=== PATIENT | female | born 2000 | race African-American/Black ===

== ENCOUNTER 2024-04-10 16:27 | Inpatient (IN) | payer OTHER ==
[2024-04-10] MEDS ORDERED: LIDOCAINE HCL 1%, 10 MG/ML (20ML VIAL) ONE (19:43)
[2024-04-10] MEDS: LIDOCAINE HCL 1%, 10 MG/ML (50 mL VIAL) SQ ONE (19:44)
[2024-04-10 20:05] LABS: POTASSIUM 4.2 mmol/L (3.5-5.1)
[2024-04-10 20:07] LABS: CALCIUM 8.5 mg/dL (8.5-10.1)
[2024-04-10 20:08] LABS: ALBUMIN 3.1 g/dl (3.4-5.0)
[2024-04-10 20:11] LABS: CREATININE 0.9 mg/dL (0.55-1.3)
[2024-04-10 20:12] LABS: BILIRUBIN,TOTAL 0.2 mg/dL (0.2-1); TOT PROT 7.5 g/dl (6.4-8.2)
[2024-04-10 20:25] LABS: EOS % 8.3 % (0-4.5); HEMATOCRIT 27.5 % (32.4-45.2); HEMOGLOBIN 7.7 GM/dL (10.7-15.3); LYMPH % 31.6 % (8-40); MCHC 27.9 g/dl (32.0-36.0); MEAN CELL VOLUME 65.9 fl (80-96); MEAN PLT VOLUME 8.4 fl (7.5-11.1); MONO % 8.4 % (3.8-10.2); NEUT % 50.7 % (42.8-82.8); PLATELET COUNT 271 10^3/uL (134-434); RBC 4.17 M/mm3 (3.60-5.2); RDW 21.8 % (11.6-15.6); WHITE BLOOD COUNT 8.1 K/mm3 (4.0-10.0)
[2024-04-10 20:29] LABS: MCH 18.4 pg (25.7-33.7)
[2024-04-10] MEDS ORDERED: ACETAMINOPHEN INJECTION 100 ML ONE (21:00)
[2024-04-10] MEDS: ACETAMINOPHEN 1000 MG/100 ML BAG IVPB ONE (21:05)
[2024-04-10 21:14] LABS: ERYTHROCYTE SEDIMENTATION RATE 34 mm/hr (0-20)
[2024-04-10 21:16] LABS: HIV INTERPRETATION NEGATIVE (NEGATIVE)
[2024-04-10 21:45] LABS: ANISOCYTOSIS 3+; MACROCYTOSIS 0
[2024-04-10] MEDS ORDERED: AMPICILLIN NA/SULBACTAM NA 3 GM/100 ML BAG IVPB ONE (21:48)
[2024-04-10] MEDS: AMPICILLIN NA/SULBACTAM NA 3 GM in SODIUM CHLORIDE 100 ML IVPB ONE (21:55)
[2024-04-10] MEDS ORDERED: ACETAMINOPHEN 1000 MG/100 ML BAG IVPB PRN (22:35)
[2024-04-11] MEDS ORDERED: AMPICILLIN NA/SULBACTAM NA 3 GM/100 ML BAG IVPB ONE ×2 (02:11→08:17)
[2024-04-11] MEDS: AMPICILLIN NA/SULBACTAM NA 3 GM in SODIUM CHLORIDE 100 ML IVPB SCH (02:17)
[2024-04-11 08:05] LABS: HEMATOCRIT 27.4 % (32.4-45.2); HEMOGLOBIN 7.6 GM/dL (10.7-15.3); MCHC 27.8 g/dl (32.0-36.0); MEAN CELL VOLUME 66.1 fl (80-96); MEAN PLT VOLUME 8.3 fl (7.5-11.1); PLATELET COUNT 270 10^3/uL (134-434); RBC 4.14 M/mm3 (3.60-5.2); RDW 21.2 % (11.6-15.6); RETICULOCYTES 1.63 % (0.5-1.5); WHITE BLOOD COUNT 6.6 K/mm3 (4.0-10.0)
[2024-04-11 08:11] LABS: MCH 18.4 pg (25.7-33.7)
[2024-04-11 08:21] LABS: POTASSIUM 3.9 mmol/L (3.5-5.1)
[2024-04-11 08:24] LABS: CALCIUM 8.8 mg/dL (8.5-10.1)
[2024-04-11 08:25] LABS: MAGNESIUM 2.1 mg/dL (1.8-2.4)
[2024-04-11 08:28] LABS: CREATININE 0.7 mg/dL (0.55-1.3); PHOSPHOROUS 2.9 mg/dL (2.5-4.9)
[2024-04-11 08:29] LABS: BILIRUBIN,TOTAL 0.3 mg/dL (0.2-1); TOT PROT 7.1 g/dl (6.4-8.2)
[2024-04-11] MEDS ORDERED: CEFTRIAXONE 1 GM/50 ML BAG ONE (12:25)
[2024-04-11] MEDS ORDERED: VANCOMYCIN 1 GRAM (PRE-DOCKED) 1,000 MG/250 ML BAG IVPB ONE (12:25)
[2024-04-11] MEDS: CEFTRIAXONE 1 GM in DEXTROSE 5%-WATER - 50 ML IVPB SCH (13:45)
[2024-04-11] MEDS: VANCOMYCIN 1,000 MG in DEXTROSE 5%-WATER - 250 ML IVPB SCH (15:24)
[2024-04-11 21:19] LABS: IRON SERUM 18 ug/dL (50-175)
[2024-04-11 21:20] LABS: TOTAL IRON BINDING CAPACITY 543 ug/dL (250-450)
[2024-04-12] MEDS: VANCOMYCIN/WATER FOR INJ (PEG) 1,000 MG/200 ML BAG IVPB SCH (02:13)
[2024-04-12] MEDS: IRON SUCROSE INJECTION 200 MG in SODIUM CHLORIDE 100 ML IVPB ONE (10:19)
[2024-04-12] MEDS: DOCUSATE SODIUM 100 MG CAPSULE (FP) PO SCH (13:38)
[2024-04-12] MEDS: POLYETHYLENE GLYCOL (HEALTHYLAX) 3350 17 GM PACKET PO SCH (13:38)
[2024-04-13 07:22] LABS: BASO % 1.3 % (0-2.0); EOS % 6.9 % (0-4.5); HEMATOCRIT 28.1 % (32.4-45.2); HEMOGLOBIN 8.1 GM/dL (10.7-15.3); LYMPH % 31.7 % (8-40); MEAN CELL VOLUME 64.7 fl (80-96); MEAN PLT VOLUME 8.5 fl (7.5-11.1); MONO % 9.6 % (3.8-10.2); NEUT % 50.5 % (42.8-82.8); PLATELET COUNT 288 10^3/uL (134-434); RBC 4.34 M/mm3 (3.60-5.2); RDW 20.8 % (11.6-15.6); WHITE BLOOD COUNT 5.9 K/mm3 (4.0-10.0)
[2024-04-13 07:35] LABS: MCH 18.8 pg (25.7-33.7)
[2024-04-13 07:39] LABS: POTASSIUM 4.2 mmol/L (3.5-5.1)
[2024-04-13 07:44] LABS: CALCIUM 8.8 mg/dL (8.5-10.1)
[2024-04-13 07:45] LABS: BLOOD UREA NITROGEN 6.7 mg/dL (7-18); MAGNESIUM 1.9 mg/dL (1.8-2.4)
[2024-04-13 07:47] LABS: CREATININE 0.7 mg/dL (0.55-1.3)
[2024-04-13 07:49] LABS: BILIRUBIN,TOTAL 0.2 mg/dL (0.2-1); TOT PROT 7.4 g/dl (6.4-8.2)
[2024-04-13 12:13] VITALS: BMI 18.8
[2024-04-13 22:35] VITALS: RESP 18
[2024-04-14 09:01] LABS: HEMATOCRIT 29.1 % (32.4-45.2); HEMOGLOBIN 8.4 GM/dL (10.7-15.3); MCHC 28.8 g/dl (32.0-36.0); MEAN PLT VOLUME 8.2 fl (7.5-11.1); PLATELET COUNT 337 10^3/uL (134-434); RBC 4.41 M/mm3 (3.60-5.2); RDW 21.7 % (11.6-15.6); WHITE BLOOD COUNT 7.5 K/mm3 (4.0-10.0)
[2024-04-14 09:25] LABS: ALBUMIN 3.3 g/dl (3.4-5.0); BLOOD UREA NITROGEN 12.6 mg/dL (7-18); MAGNESIUM 2.1 mg/dL (1.8-2.4)
[2024-04-14 09:27] LABS: CREATININE 0.7 mg/dL (0.55-1.3)
[2024-04-14 09:29] LABS: BILIRUBIN,TOTAL 0.2 mg/dL (0.2-1); TOT PROT 8.2 g/dl (6.4-8.2)
[2024-04-14 14:17] VITALS: BP 111/76; PULSE 83; TEMP 97.9
== END 2024-04-14 19:20 | disposition home or self-care (01) | DRG 383 ==
LOC: JER 16:27 → JERBED 20:13 → OBSVTOIN 21:25 → J7W 04-11 19:48
PROVIDERS: ADMIT Internal Medicine; ATTEND Internal Medicine
PROC: 0X9J0ZZ Drainage of Right Hand, Open Approach (ICD-10-PCS; principal; 2024-04-11)
DX: L02.511 Cutaneous abscess of right hand (principal); D50.9 Iron deficiency anemia, unspecified; L30.9 Dermatitis, unspecified; B95.62 Methicillin resistant Staphylococcus aureus infection as the cause of diseases classified elsewhere
CPT/HCPCS: 36415; 73130-TC-RT-FY; 73218-TC-RT; 80053; 82728; 83540; 83550; 83615; 83735; 84100; 84703; 85025; 85027; 85045; 85651; 86140; 86803; 87040; 87070; 87081; 87186; 87205; 87389; 93005; 93010; 99285-25; G0378; G0480; J0131; J1756